=== PATIENT | female | born 1995 | race Two or more races ===

== ENCOUNTER 2017-07-08 23:01 | Emergency (ER) | payer OTHER ==
[~2017-07-08] VITALS: Ht 165.1 cm; Wt 87.5 kg
[2017-07-08 23:46] VITALS: BP 124/74
== END 2017-07-08 23:48 | disposition home or self-care (01) ==
LOC: ED 23:40
DX: S16.1XXA Strain of muscle, fascia and tendon at neck level, initial encounter (principal); M79.643 Pain in unspecified hand; V89.2XXA Person injured in unspecified motor-vehicle accident, traffic, initial encounter; Y93.89 Activity, other specified; Y92.89 Other specified places as the place of occurrence of the external cause; Y99.8 Other external cause status
CPT/HCPCS: 99283

== ENCOUNTER 2018-01-14 21:28 | Emergency (ER) | payer OTHER ==
[~2018-01-14] VITALS: Ht 165.1 cm; Wt 88.7 kg
[2018-01-14 21:33] VITALS: BP 127/77
[2018-01-14] MEDS ORDERED: LIDOCAINE-MPF 1%, 5ML ONE (21:55)
[2018-01-14] MEDS ORDERED: BACITRACIN ZINC OINT 500U/GM, 0.9 GM ONE ×2 (22:19→22:34)
== END 2018-01-14 22:36 | disposition home or self-care (01) ==
LOC: ED 22:35
DX: L60.0 Ingrowing nail (principal)
CPT/HCPCS: 11730; 99283

== ENCOUNTER 2019-09-27 17:38 | Emergency (ER) | payer OTHER ==
[~2019-09-27] VITALS: Ht 165.1 cm; Wt 94.0 kg
[2019-09-27 17:53] VITALS: BP 137/78
[2019-09-27] MEDS ORDERED: NEOSPORIN OINT. PKT 1 PACKET ONE (18:48)
== END 2019-09-27 20:00 | disposition home or self-care (01) ==
LOC: ED 18:30
DX: S00.83XA Contusion of other part of head, initial encounter (principal); S40.811A Abrasion of right upper arm, initial encounter; S70.312A Abrasion, left thigh, initial encounter; S70.311A Abrasion, right thigh, initial encounter; S09.90XA Unspecified injury of head, initial encounter; W18.39XA Other fall on same level, initial encounter; Y93.73 Activity, racquet and hand sports; Y92.488 Other paved roadways as the place of occurrence of the external cause; Y99.8 Other external cause status
CPT/HCPCS: 70450; 70486; 71046; 99285

== ENCOUNTER 2020-10-31 12:00 | Emergency (ER) | payer BC, OTHER ==
[~2020-10-31] VITALS: Ht 165.1 cm; Wt 92.0 kg
--- NOTE | 2020-10-31 12:49 | NUR ---
PT PRESENTS WITH LARGE VAGINAL BLEEDING AND LOWER ABD CRAMPING. LMP 09/05/20, . PT REPORTS SHE'S GONE THROUGH 2 LARGE SANITARY PADS IN THE LAST HOUR, BLEEDING LARGE CLOTS AND POSSIBLE TISSUE.
--- NOTE | 2020-10-31 12:59 | NUR ---
Pt changed into hospital gown and provided warm blanket.
[2020-10-31 13:07] LABS: BASOPHILS % (AUTO) 0 % (0-1); EOSINOPHILS % (AUTO) 1 % (1-7); LYMPHOCYTES % (AUTO) 40 % (22-44); MEAN CORPUSCULAR HEMOGLOBIN 29.6 pg (27.0-34.8); MEAN CORPUSCULAR HGB CONC 34.2 g/dL (32.4-35.8); MEAN PLATELET VOLUME 7.3 fL (7.4-10.4); MONOCYTES % (AUTO) 8 % (2-9); NEUTROPHILS % (AUTO) 51 % (42-75); PLATELET COUNT 368 x10^3/uL (130-400); RED BLOOD COUNT 4.55 x10^6/uL (3.82-5.3); RED CELL DISTRIBUTION WIDTH 13.4 % (9.6-15.2)
[2020-10-31 13:15] LABS: ALBUMIN 3.6 g/dL (3.4-5.0); ANION GAP 5 mmol/L (5-15); CALCIUM 9.3 mg/dL (8.5-10.1); CHLORIDE 104 mmol/L (98-107); CREATININE 0.54 mg/dL (0.55-1.02)
--- NOTE | 2020-10-31 14:53 | NUR ---
DR. CODY AT BEDSIDE.
--- NOTE | 2020-10-31 15:53 | NUR ---
AT BEDSIDE FOR EXAM.
[2020-10-31 16:29] VITALS: BP 113/70
== END 2020-10-31 16:29 ==
LOC: ED 16:05
DX: O03.9 Complete or unspecified spontaneous abortion without complication (principal); Z90.49 Acquired absence of other specified parts of digestive tract
CPT/HCPCS: 36415; 76801; 80048; 82040; 84702; 85025; 99284